=== PATIENT | female | born 1970 | race Caucasian/White ===

== ENCOUNTER 2016-11-30 11:17 | Emergency (ER) | payer OTHER | END 2016-11-30 13:18 | disposition home or self-care (01) | LOC: FER 11:17 | DX: R22.0 Localized swelling, mass and lump, head (principal); T49.8X5A Adverse effect of other topical agents, initial encounter; Z88.0 Allergy status to penicillin | CPT/HCPCS: J2930 ==

== ENCOUNTER 2021-01-21 11:43 | Emergency (ER) | payer OTHER ==
[~2021-01-21 11:43] MED LIST: BENTYL10 MG PO; NORCO 5-325 TA1 EACH PO; YAZ 28 TABLET1 EACH PO; ZOFRAN ODT4 MG SL
[2021-01-21 12:46] LABS: BASOPHIL 0.5 % (0-2); EOSINOPHIL 1.8 % (0-5); HCT 42.5 % (37.0-47.0); HGB 14.2 g/dl (12.5-16.0); LYMPHOCYTE 28.1 % (15-48); MCH 30.9 pg (25.0-31.0); MCHC 33.4 g/dL (32.0-36.0); MCV 92.6 fL (78.0-100.0); MONOCYTE 6.8 % (0-12); MPV 8.9 fL (6.0-9.5); NEUTROPHIL 62.2 % (41-80); NRBC 0; PLT 221 K/uL (150-400); RBC 4.59 M/uL (4.20-5.40); RDW 12.1 % (11.5-14.0); WBC 7.8 K/uL (4.0-10.5)
[2021-01-21 12:55] LABS: INR 1.05 (0.9-1.2); PROTHROMBIN TIME 13.1 SECONDS (11.8-13.4); PTT 24.7 SECONDS (24.4-34.7)
[2021-01-21 13:02] LABS: ALBUMIN 3.3 g/dL (3.4-5.0); BILIRUBIN - TOTAL 0.6 mg/dL (0.2-1.0); BUN/CREAT RATIO (CALC) 13.8 RATIO; CREATININE 0.8 mg/dL (0.51-0.95); GLOBULIN (CALCULATION) 3.7 g/dL; POTASSIUM 3.8 mmol/L (3.5-5.1)
== END 2021-01-21 15:28 | disposition home or self-care (01) ==
LOC: FER 11:43
PROVIDERS: Emergency Medicine
DX: R07.89 Other chest pain (principal); Z90.49 Acquired absence of other specified parts of digestive tract; Z88.1 Allergy status to other antibiotic agents; Z88.0 Allergy status to penicillin
CPT/HCPCS: 36415; 71045; 80053; 84484; 85025; 85610; 85730; 93005